=== PATIENT | male | born 1940 | race Caucasian/White ===

== ENCOUNTER 2020-08-03 13:02 | Emergency (ER) | payer OTHER ==
[~2020-08-03 13:02] MED LIST: CIPRO500 MG PO; DILTIAZEM ER300 MG PO; FLOMAX 0.4 MG0.4 MG PO; LISINOPRIL-HCT1 EAC2 PO; SINGULAIR10 MG PO; SYMBICORT 80-10.2 GM INH; VENTOLIN HFA IN18 GM INH; WELCHOL625 MG PO
[2020-08-03 14:34] LABS: BILIRUBIN NEGATIVE (NEGATIVE); BLOOD 3+ Ery/uL (NEGATIVE); CLARITY CLEAR (CLEAR); COLOR YELLOW (YELLOW); GLUCOSE (U) NORMAL (NORMAL); LEUKOCYTES NEGATIVE Leu/uL (NEGATIVE); NITRITE NEGATIVE (NEGATIVE); PROTEIN NEGATIVE (NEGATIVE); UROBILINOGEN 0.2 mg/dL (0.2-1.0)
[2020-08-03 15:01] LABS: URINARY RBC 20-50; URINARY WBC RARE
[2020-08-03 15:02] LABS: BACTERIA TRACE
[2020-08-03] MEDS ORDERED: VIBRAMYCIN100 MG PO (15:11)
== END 2020-08-03 15:58 | disposition home or self-care (01) ==
LOC: FER 13:02
PROVIDERS: Emergency Medicine
DX: N40.1 Benign prostatic hyperplasia with lower urinary tract symptoms (principal); R33.8 Other retention of urine; I10 Essential (primary) hypertension; Z88.0 Allergy status to penicillin
CPT/HCPCS: 81001

== ENCOUNTER 2020-08-06 17:57 | Emergency (ER) | payer OTHER ==
[~2020-08-06 17:57] MED LIST changes: +VIBRAMYCIN100 MG PO
[2020-08-06 20:09] LABS: BASOPHIL 0.6 % (0-2); EOSINOPHIL 0.7 % (0-7); HCT 41.9 % (42.0-52.0); HGB 14.1 g/dl (13.2-18.0); LYMPHOCYTE 11.1 % (15-48); MCH 30.4 pg (25.0-31.0); MCHC 33.7 g/dL (32.0-36.0); MCV 90.3 fL (78.0-100.0); MPV 10.5 fL (6.0-9.5); NEUTROPHIL 79.3 % (41-80); NRBC 0; PLT 292 K/uL (150-400); RBC 4.64 M/uL (4.70-6.00); RDW 13.5 % (11.5-14.0); WBC 12.5 K/uL (4.0-10.5)
[2020-08-06 20:27] LABS: BUN/CREAT RATIO (CALC) 20.2 RATIO; CREATININE 1.09 mg/dL (0.67-1.17); POTASSIUM 4.1 mmol/L (3.5-5.1)
[2020-08-06 20:49] LABS: LACTIC ACID 1.1 mmol/L (0.4-1.9)
== END 2020-08-06 21:15 | disposition other institution (70) ==
LOC: FER 17:57
PROVIDERS: Emergency Medicine
DX: T83.091A Other mechanical complication of indwelling urethral catheter, initial encounter (principal); N40.1 Benign prostatic hyperplasia with lower urinary tract symptoms; R33.8 Other retention of urine; I12.9 Hypertensive chronic kidney disease with stage 1 through stage 4 chronic kidney disease, or unspecified chronic kidney disease; N18.9 Chronic kidney disease, unspecified; J45.909 Unspecified asthma, uncomplicated; Z88.0 Allergy status to penicillin; Z88.8 Allergy status to other drugs, medicaments and biological substances; Y84.6 Urinary catheterization as the cause of abnormal reaction of the patient, or of later complication, without mention of misadventure at the time of the procedure
CPT/HCPCS: 36415; 80048; 83605; 85025; 87040; 96372; 96374; J1170; J2060